=== PATIENT | female | born 1960 | race Caucasian/White ===

== ENCOUNTER 2016-09-25 19:35 | Inpatient (IN) | payer BC ==
[~2016-09-25] VITALS: Ht 154.9 cm; Wt 85.2 kg
[2016-09-25] MEDS ORDERED: SODIUM CHLOR 0.9% 1000 ML INJ 1,000 ML IV ONE ×2 (19:55→21:45)
[2016-09-25] MEDS ORDERED: METF850T PO (19:56)
[2016-09-25] MEDS ORDERED: ATOR10TA15 PO (19:56)
[2016-09-25] MEDS ORDERED: TRAM50TA PO (19:56)
[2016-09-25] MEDS ORDERED: PANT20TA2 PO (19:56)
[2016-09-25] MEDS ORDERED: LEVO50TA4 PO (19:56)
[2016-09-25] MEDS ORDERED: LISI10TA3 PO (19:56)
[2016-09-25] MEDS ORDERED: GABA800T PO (19:56)
[2016-09-25 19:57] VITALS: BP 136/71; PULSE 85; RESP 15; TEMP 97.6; O2SAT 99
[2016-09-25] MEDS ORDERED: SODIUM CHLORIDE 0.9% FLUSH 10 ML FLUSH IVF PRN (20:00)
[2016-09-25 20:01] VITALS: O2SAT 99
--- NOTE | 2016-09-25 20:17 | PD ---
HPI Chief Complaint: Diabetic Time Seen by Provider: 19:50 Travel History International Travel<30 days: No Contact w/Intl Traveler<30days: No Traveled to known affect area: No History of Present Illness HPI 56-year-old female with history of diabetes, sent in by urgent care facility for hypoglycemia. Patient initially went to the urgent care facility for evaluation of generalized weakness and malaise for the last 2-3 days. Patient is also felt nauseous and has had poor appetite and little to eat or drink. No vomiting. No diarrhea. No abdominal pain. No chest pain or dyspnea. No fevers or chills. Patient's blood glucose was 46 at the urgent care facility. She was given oral glucose and transferred to the emergency department. Here her blood sugar is above 100. She takes metformin only for her diabetes. PFSH Past Medical History Diabetes: Yes Patient Takes Glucophage: Yes Diminished Hearing: No GERD: Yes Hypertension: Yes Medical other: Yes (neuropathy) Tetanus Vaccination: > 5 Years Influenza Vaccination: Yes ?: Not Menopausal: Yes Para: 3 Past Surgical History Section: Yes Social History Alcohol Use: No Tobacco Use: No Substance Use: No Allergies-Medications (Allergen,Severity, Reaction): Coded Allergies: Codeine (Verified Allergy, Severe, Hives, 09/25/16) Reported Meds & Prescriptions Reported Meds & Active Scripts Active Reported Tramadol (Tramadol HCl) 50 Mg Tab 50 Mg PO Q4H PRN Gabapentin 800 Mg Tab 800 Mg PO TID Levothyroxine (Levothyroxine Sodium) 50 Mcg Tab 50 Mcg PO DAILY Atorvastatin (Atorvastatin Calcium) 10 Mg Tab 10 Mg PO HS Pantoprazole (Pantoprazole Sodium) 20 Mg Tab 20 Mg PO DAILY Lisinopril 10 Mg Tab 10 Mg PO DAILY Metformin (Metformin HCl) 850 Mg Tab 850 Mg PO BIDPC With meals Review of Systems Except as stated in HPI: all other systems reviewed are Neg Physical Exam Narrative GENERAL: Well-developed, well-nourished, comfortable, no acute distress. SKIN: Focused skin assessment warm/dry. No rash. No pallor. HEAD: Atraumatic. Normocephalic. EYES: Pupils equal and round. No scleral icterus. No injection or drainage. ENT: Mucous membranes pink and moist. NECK: Trachea midline. No JVD. CARDIOVASCULAR: Regular rate and rhythm. RESPIRATORY: No accessory muscle use. Clear to auscultation. Breath sounds equal bilaterally. GASTROINTESTINAL: Abdomen soft, non-tender, nondistended. MUSCULOSKELETAL: No obvious deformities. No clubbing. No cyanosis. No edema. NEUROLOGICAL: Awake and alert. No obvious cranial nerve deficits. Motor grossly within normal limits. Normal speech. PSYCHIATRIC: Appropriate mood and affect; insight and judgment normal. Data Data Last Documented VS Vital Signs Date Time Temp Pulse Resp B/P Pulse Ox O2 Delivery O2 Flow Rate FiO2 09/25/16 20:01 99 Room Air 09/25/16 19:57 97.6 85 15 136/71 Orders Electrocardiogram (09/25/16 19:55) Complete Blood Count With Diff (09/25/16 19:55) Comprehensive Metabolic Panel (09/25/16 19:55) Magnesium (Mg) (09/25/16 19:55) Phosphorus (Po4) (09/25/16 19:55) Beta Hydroxybutyrate (Acetone) (09/25/16 19:55) Urinalysis - C+S If Indicated (09/25/16 19:55) Ecg Monitoring (09/25/16 19:55) Iv Access Insert/Monitor (09/25/16 19:55) Oximetry (09/25/16 19:55) NPO (09/25/16 19:55) Sodium Chloride 0.9% Flush (Ns Flush) (09/25/16 20:00) Sodium Chlor 0.9% 1000 Ml Inj (Ns 1000 M (09/25/16 19:55) Ckmb (Isoenzyme) Profile (09/25/16 19:55) Troponin I (09/25/16 19:55) Ondansetron Inj (Zofran Inj) (09/25/16 20:45) Influenzae A/B Antigen (09/25/16 20:48) Chest, Single Ap (09/25/16 ) CKMB (09/25/16 20:13) CKMB% (09/25/16 20:13) Calcium Gluconate Inj (Calcium Gluconate (09/25/16 21:30) Dextrose 50% In Tiffanie (Vial) Inj (D50w (Vi (09/25/16 21:30) Insulin Human Regular Inj (Novolin R Inj (09/25/16 21:30) Sodium Bicarbonate 8.4% Inj (Sodium Bica (09/25/16 21:30) Sodium Polysty Sulfate Liq (Kayexalate L (09/25/16 21:30) Sodium Polysty Sulfate Liq (Kayexalate L (09/25/16 23:30) Urinary Catheter Insert/Apply (09/25/16 21:30) Sodium Chlor 0.45%... W/Sodium Bicarbona (09/25/16 21:30) Sodium Chlor 0.9% 1000 Ml Inj (Ns 1000 M (09/25/16 21:45) Labs Laboratory Tests Test 09/25/16 20:13 White Blood Count 15.5 TH/MM3 Red Blood Count 3.85 MIL/MM3 Hemoglobin 11.8 GM/DL Hematocrit 35.5 % Mean Corpuscular Volume 92.2 FL Mean Corpuscular Hemoglobin 30.6 PG Mean Corpuscular Hemoglobin 33.2 % Concent Red Cell Distribution Width 13.5 % Platelet Count 262 TH/MM3 Mean Platelet Volume 8.2 FL Neutrophils (%) (Auto) 83.9 % Lymphocytes (%) (Auto) 10.5 % Monocytes (%) (Auto) 4.1 % Eosinophils (%) (Auto) 0.1 % Basophils (%) (Auto) 1.4 % Neutrophils # (Auto) 13.1 TH/MM3 Lymphocytes # (Auto) 1.6 TH/MM3 Monocytes # (Auto) 0.6 TH/MM3 Eosinophils # (Auto) 0.0 TH/MM3 Basophils # (Auto) 0.2 TH/MM3 CBC Comment AUTO DIFF Differential Total Cells 100 Counted Neutrophils % (Manual) 77 % Band Neutrophils % 8 % Lymphocytes % 11 % Monocytes % 4 % Neutrophils # (Manual) 13.2 TH/MM3 Differential Comment FINAL DIFF MANUAL Platelet Estimate NORMAL Platelet Morphology Comment NORMAL Red Cell Morphology Comment NORMAL Sodium Level 137 MEQ/L Potassium Level 7.3 MEQ/L Chloride Level 107 MEQ/L Carbon Dioxide Level 12.4 MEQ/L Anion Gap 18 MEQ/L Blood Urea Nitrogen 71 MG/DL Creatinine 8.70 MG/DL Estimat Glomerular Filtration 5 ML/MIN Rate Random Glucose 139 MG/DL Calcium Level 8.7 MG/DL Phosphorus Level 5.5 MG/DL Magnesium Level 1.8 MG/DL Total Bilirubin 0.2 MG/DL Aspartate Amino Transf 17 U/L (AST/SGOT) Alanine Aminotransferase 14 U/L (ALT/SGPT) Alkaline Phosphatase 83 U/L Total Creatine Kinase 110 U/L Creatine Kinase MB 2.1 NG/ML Troponin I LESS THAN 0.02 NG/ML Total Protein 6.9 GM/DL Albumin 3.3 GM/DL B-Hydroxybutyrate 2.67 MMOL/L MDM Medical Decision Making Medical Screen Exam Complete: Yes Emergency Medical Condition: Yes Interpretation(s) EKG: Sinus, rate 91, normal axis, normal intervals, poor R-wave progression, generalized low QRS voltages, no prior comparison Differential Diagnosis Hypoglycemia, anemia, metabolic abnormality, UTI, ACS Narrative Course Vital signs show heart rate 85, blood pressure 136/71, pulse ox 99% on room air , oral temp of 97.6F. CBC shows WBC 15.5, hemoglobin 11.8, hematocrit 35.5, platelets 262, neutrophils 83.9%. Band neutrophils 8%. CMP is remarkable for potassium 7.3, bicarbonate 12.4, anion gap 18, BUN 71, creatinine 8.7, GFR 5, random glucose 139. The patient does not have any known history of renal insufficiency. She does have low QRS. His in all of her leads on EKG. No peaked T waves. She was given an amp of calcium gluconate followed by an amp of D50, 10 units of IV insulin, and an amp of sodium bicarbonate. Case discussed with on-call tele tech Dr. Salinas. He agrees with above medications. He would also like the patient to be given Kayexalate, 1 dose now , and the next dose in 2 hours from now. Acevedo catheter will also be placed. He'll like the patient to be admitted to the [facility] hospital in case she does not respond to resuscitation and needs dialysis. Acevedo placed by my nurse with no urine output. Case discussed with receiving room clerk Dr. Uriostegui. The patient will be admitted to his service to the ICU at the [facility]. Patient was made aware of all findings and plan for admission. Critical Care Narrative Aggregate critical care time was 40 minutes. Time to perform other separately billable procedures was not included in the critical care time. My time did not include minutes spent treating any other patients simultaneously or on activities that did not directly contribute to the patient's treatment. The services I provided to this patient were to treat and/or prevent clinically significant deterioration that could result in: , permanent disability, worsening clinical condition, dysrhythmia I provided critical care services requiring my management, as noted below: Chart data review, documentation time, medication orders and management, vital sign assessments/reviewing monitor data, ordering and reviewing lab tests, ordering and interpreting/reviewing x-rays and diagnostic studies, care of the patient and discussion of the patient with the admitting physicians. Diagnosis Primary Impression: Acute renal failure Qualified Code: N17.9 - Acute renal failure, unspecified acute renal failure type Additional Impressions: Hyperkalemia Hypoglycemia Admitting Information Admitting Physician Requests: Admit Felix Pickett MD Sep 25, 2016 20:17
[2016-09-25 20:20] LABS: AUTOMATED NEUTROPHIL # 13.1 TH/MM3 (1.8-7.7); BASOPHIL # 0.2 TH/MM3 (0-0.2); BASOPHIL % 1.4 % (0.0-2.0); EOSINOPHIL % 0.1 % (0.0-4.0); HEMATOCRIT 35.5 % (35.0-46.0); LYMPH % 10.5 % (9.0-44.0); LYMPHOCYTE # 1.6 TH/MM3 (1.0-4.8); MEAN CELL VOLUME 92.2 FL (80.0-100.0); MEAN CORPUSCULAR HEMOGLOBIN 30.6 PG (27.0-34.0); MEAN CORPUSCULAR HGB CONC 33.2 % (32.0-36.0); MONO % 4.1 % (0.0-8.0); NEUT % 83.9 % (16.0-70.0); PLATELET COUNT 262 TH/MM3 (150-450); RED BLOOD COUNT 3.85 MIL/MM3 (4.00-5.30); RED CELL DISTRIBUTION WIDTH 13.5 % (11.6-17.2); WHITE BLOOD COUNT 15.5 TH/MM3 (4.0-11.0)
[2016-09-25 20:23] LABS: HEMO FLAGS AUTO DIFF
[2016-09-25 20:39] LABS: BANDS 8 % (0-6); NEUTROPHIL # MANUAL DIFF 13.2 TH/MM3 (1.8-7.7); PLATELET ESTIMATE SMEAR NORMAL (NORMAL); PLATELET MORPHOLOGY NORMAL (NORMAL); POLYS (SEG NEUTROPHILS) 77 % (16-70); SCAN/DIFF FINAL DIFF MANUAL; WBC DIFF SAMPLE 100
[2016-09-25] MEDS ORDERED: ONDANSETRON HCL 4 MG/2 ML VIAL IV PUSH ONE (20:45)
[2016-09-25 21:13] LABS: ALKALINE PHOSPHATASE 83 U/L (45-117); ALT (GPT) 14 U/L (10-53); ANION GAP 18 MEQ/L (5-15); AST (GOT) 17 U/L (15-37); BETA-HYDROXYBUTYRATE 2.67 MMOL/L (0.00-0.39); BICARBONATE 12.4 MEQ/L (21.0-32.0); BLOOD UREA NITROGEN 71 MG/DL (7-18); CHLORIDE 107 MEQ/L (98-107); CREATINE KINASE 110 U/L (26-192); GLOMERULAR FILTRATION RATE 5 ML/MIN (>89); MAGNESIUM 1.8 MG/DL (1.5-2.5); SODIUM (NA) 137 MEQ/L (136-145); TOTAL BILIRUBIN ADULT 0.2 MG/DL (0.2-1.0)
[2016-09-25 21:15] LABS: POTASSIUM 7.3 MEQ/L (3.5-5.1)
--- NOTE | 2016-09-25 21:28 | RADHPO ---
EXAM DATE/TIME: 09/25/2016 21:01 [facility] COMPARISON: No previous studies available for comparison. INDICATIONS : General weakness. MEDICAL HISTORY : Hypertension. Diabetes mellitus type II. SURGICAL HISTORY : None. ENCOUNTER: Initial ACUITY: 3 days PAIN SCORE: 0/10 LOCATION: Bilateral chest FINDINGS: The lungs are clear without infiltrate, nodule, or mass. There is no appreciable pleural effusion fo r technique. Heart and mediastinum are unremarkable. CONCLUSION: No acute cardiopulmonary disease. Stefano Lazaro MD on September 25, 2016 at 21:26 Board Certified Radiologist. This report was verified electronically.
[2016-09-25 21:30] LABS: CKMB 2.1 NG/ML (0.5-3.6)
[2016-09-25] MEDS ORDERED: CALCIUM GLUCONATE 10% 1 GM/10 ML VIAL IV PUSH ONE (21:30)
[2016-09-25] MEDS ORDERED: DEXTROSE 50% IN WATER 50 ML VIAL(D50) IV PUSH ONE (21:30)
[2016-09-25] MEDS ORDERED: INSULIN HUMAN REGULAR 1,000 UNITS/10 ML VIAL IV PUSH ONE (21:30)
[2016-09-25] MEDS ORDERED: SODIUM BICARBONATE 8.4% INJ 100 MEQ in SODIUM CHLOR 0.45% 1000 ML INJ 1,000 ML IV SCH (21:30)
[2016-09-25] MEDS ORDERED: SODIUM POLYSTYRENE SULFONATE SUSP 15 GM/60 ML CUP PO ONE (21:30)
[2016-09-25] MEDS ORDERED: SODIUM BICARBONATE 8.4% INJ 50 MEQ/50 ML SYR IV PUSH ONE (21:30)
[2016-09-25 22:52] VITALS: BP 121/58; PULSE 91; RESP 16; O2SAT 99
[2016-09-25] MEDS ORDERED: SODIUM POLYSTYRENE SULFONATE SUSP 15 GM/60 ML CUP PO SCH (23:30)
[2016-09-26] VITALS (20 sets, daily range): BP systolic 110–139; BP diastolic 57–75; PULSE 84–94; RESP 11–17; TEMP 97.8–99; O2SAT 98–100
[2016-09-26 02:23] LABS: BACTERIA, URINE OCC /hpf; BLOOD, URINE SMALL (NEG); COMMENT (UR) CULT NOT INDICATED; CULTURE IF INDICATED CULT NOT INDICATED; GLUCOSE,URINE TRACE mg/dL (NEG); KETONE, URINE 10 mg/dL (NEG); MUCUS URINE FEW /lpf (OCC); NITRITE,URINE NEG (NEG); SQUAMOUS EPITHELIAL CELL URINE <1 /hpf (0-5); URINE COLOR LIGHT-YELLOW (YELLW/STRAW)
--- NOTE | 2016-09-26 02:52 | HHI.HP ---
[facility] Service Critical Care Medicine Primary Care Physician Gregorio Riley MD Admission Diagnosis acute renal failure, hyperkalemia, hypoglycemia Diagnosis: Travel History International Travel<30 Days: No Contact w/Intl Traveler <30 Da: No Traveled to Known Affected Are: No History of Present Illness 56-year-old female with history of hypertension, diabetes, sent in by urgent care facility for hypoglycemia. Patient initially went to the urgent care facility for evaluation of generalized weakness and malaise for the last 2-3 days. Patient is also felt nauseous and has had poor appetite and little to eat or drink. No vomiting. No diarrhea. No abdominal pain. No chest pain or dyspnea. No fevers or chills. Patient's blood glucose was 46 at the urgent care facility. She was given oral glucose and transferred to the emergency department. However she was found to be in acute renal failure with creatinine 9 and potassium 7. She was initially seen at the [facility] however per nephrology party plan sales consultant request she was transferred to [facility] and admitted to ICU. Review of Systems Constitutional: COMPLAINS OF: Fatigue, Change in appetite, DENIES: Diaphoretic episodes, Fever, Weight gain, Weight loss, Chills, Dizziness, Night Sweats Endocrine: DENIES: Abnorml menstrual pattern, Heat/cold intolerance, Polydipsia , Polyuria, Polyphagia Eyes: DENIES: Blurred vision, Diplopia, Eye inflammation, Eye pain, Vision loss , Photosensitivity, Double Vision Ears, nose, mouth, throat: DENIES: Tinnitus, Hearing loss, Vertigo, Nasal discharge, Oral lesions, Throat pain, Hoarseness, Ear Pain, Running Nose, Epistaxis, Sinus Pain, Toothache, Odynophagia Respiratory: DENIES: Apneas, Cough, Snoring, Wheezing, Hemoptysis, Sputum production, Shortness of breath Cardiovascular: DENIES: Chest pain, Palpitations, Syncope, Dyspnea on Exertion , PND, Lower Extremity Edema, Orthopnea, Claudication Gastrointestinal: COMPLAINS OF: Nausea, Anorexia, DENIES: Abdominal pain, Black stools, Bloody stools, Constipation, Diarrhea, Vomiting, Difficulty Swallowing Genitourinary: DENIES: Abnormal vaginal bleeding, Dysmenorrhea, Dyspareunia, Sexual dysfunction, Urinary frequency, Urinary incontinence, Urgency, Hematuria , Dysuria, Nocturia, Vaginal discharge Musculoskeletal: DENIES: Joint pain, Muscle aches, Stiffness, Joint Swelling, Back pain, Neck pain Integumentary: DENIES: Abnormal pigmentation, Pruritus, Rash, Nail changes, Breast masses, Breast skin changes, Nipple discharge Hematologic/lymphatic: DENIES: Bruising, Lymphadenopathy Immunologic/allergic: DENIES: Eczema, Urticaria Neurologic: DENIES: Abnormal gait, Headache, Localized weakness, Paresthesias, Seizures, Speech Problems, Tremor, Poor Balance Psychiatric: DENIES: Anxiety, Confusion, Mood changes, Depression, Hallucinations, Agitation, Suicidal Ideation, Homicidal Ideation, Delusions Past Family Social History Allergies: Coded Allergies: Codeine (Verified Allergy, Severe, Hives, 09/25/16) Past Medical History Diabetes mellitus type 2 Hypertension Diabetic neuropathy Hypothyroid Past Surgical History Negative Reported Medications Reported Meds & Active Scripts Active Reported Tramadol (Tramadol HCl) 50 Mg Tab 50 Mg PO Q4H PRN Gabapentin 800 Mg Tab 800 Mg PO TID Levothyroxine (Levothyroxine Sodium) 50 Mcg Tab 50 Mcg PO DAILY Atorvastatin (Atorvastatin Calcium) 10 Mg Tab 10 Mg PO HS Pantoprazole (Pantoprazole Sodium) 20 Mg Tab 20 Mg PO DAILY Lisinopril 10 Mg Tab 10 Mg PO DAILY Metformin (Metformin HCl) 850 Mg Tab 850 Mg PO BIDPC With meals Active Ordered Medications Current Medications Medications (Trade) Dose Ordered Sig/Suzette Route PRN Reason Start Time Stop Time Status Last Admin Dose Admin Sodium Polystyrene Sulfonate 15 gm 15 gm ONCE PO 09/25/16 23:30 09/25/16 23:38 Sodium Bicarbonate/ Sodium Chloride (Sodium Bicarbonate 8.4% Inj/1/2 NS 1000 ml Inj) 1,100 ml @ 125 mls/hr Q8H48M IV 09/25/16 21:30 09/25/16 22:04 Sodium Chloride (NS Flush) 2 ml UNSCH PRN .XX FLUSH AFTER USING IV ACCESS 09/26/16 03:00 Sodium Chloride (NS Flush) 2 ml BID .XX 09/26/16 09:00 Acetaminophen (Tylenol) 650 mg Q6H PRN PO PAIN 1-5 AND/OR FEVER >101F 09/26/16 03:00 Morphine Sulfate (Morphine Inj) 2 mg Q2H PRN IV PAIN SCALE 6 TO 10 09/26/16 03:00 Ondansetron HCl (Zofran Inj) 4 mg Q6H PRN IV NAUSEA OR VOMITING 09/26/16 03:00 Metoclopramide HCl (Reglan Inj) 5 mg Q6H PRN IV NAUSEA OR VOMITING 09/26/16 03:00 Temazepam (Restoril) 15 mg HS PRN PO INSOMNIA 09/26/16 03:00 Heparin Sodium (Porcine) (Heparin Inj) 5,000 units Q12H SQ 09/26/16 03:00 Miscellaneous Information 1 Q361D XX 09/26/16 03:00 Chlorhexidine Gluconate (Chlorhexidine 2% Cloth) 3 pack Taper DAILY@04 TOP 09/26/16 04:00 09/22/17 03:59 Chlorhexidine Gluconate (Chlorhexidine 2% Cloth) 3 pack UNSCH PRN TOP HYGIENIC CARE 09/26/16 03:00 Atorvastatin Calcium (Lipitor) 10 mg HS PO 09/26/16 21:00 Levothyroxine Sodium (Synthroid) 50 mcg DAILY@0600 PO 09/26/16 06:00 Family History Noncontributory Social History Negative 3 Physical Exam Vital Signs Vital Signs Date Time Temp Pulse Resp B/P Pulse Ox O2 Delivery O2 Flow Rate FiO2 09/26/16 02:00 86 09/26/16 00:52 92 09/26/16 00:10 97.8 88 16 139/74 100 09/25/16 22:52 91 16 121/58 99 Room Air 09/25/16 20:01 99 Room Air 09/25/16 20:01 99 Room Air 09/25/16 19:57 97.6 85 15 136/71 99 Physical Exam GENERAL: Well-nourished, well-developed patient. SKIN: Warm and dry. HEAD: Normocephalic. EYES: No scleral icterus. No injection or drainage. NECK: Supple, trachea midline. No JVD or lymphadenopathy. CARDIOVASCULAR: Regular rate and rhythm without murmurs, gallops, or rubs. RESPIRATORY: Breath sounds equal bilaterally. No accessory muscle use. GASTROINTESTINAL: Abdomen soft, non-tender, nondistended. MUSCULOSKELETAL: No cyanosis, or edema. BACK: Nontender without obvious deformity. No CVA tenderness. EXTREMITIES: No clubbing cyanosis or edema Laboratory Laboratory Tests Test 09/25/16 09/26/16 20:13 01:40 White Blood Count 15.5 Red Blood Count 3.85 Hemoglobin 11.8 Hematocrit 35.5 Mean Corpuscular Volume 92.2 Mean Corpuscular Hemoglobin 30.6 Mean Corpuscular Hemoglobin 33.2 Concent Red Cell Distribution Width 13.5 Platelet Count 262 Mean Platelet Volume 8.2 Neutrophils (%) (Auto) 83.9 Lymphocytes (%) (Auto) 10.5 Monocytes (%) (Auto) 4.1 Eosinophils (%) (Auto) 0.1 Basophils (%) (Auto) 1.4 Neutrophils # (Auto) 13.1 Lymphocytes # (Auto) 1.6 Monocytes # (Auto) 0.6 Eosinophils # (Auto) 0.0 Basophils # (Auto) 0.2 CBC Comment AUTO DIFF Differential Total Cells 100 Counted Neutrophils % (Manual) 77 Band Neutrophils % 8 Lymphocytes % 11 Monocytes % 4 Neutrophils # (Manual) 13.2 Differential Comment FINAL DIFF MANUAL Platelet Estimate NORMAL Platelet Morphology Comment NORMAL Red Cell Morphology Comment NORMAL Sodium Level 137 Potassium Level 7.3 Chloride Level 107 Carbon Dioxide Level 12.4 Anion Gap 18 Blood Urea Nitrogen 71 Creatinine 8.70 Estimat Glomerular Filtration 5 Rate Random Glucose 139 Calcium Level 8.7 Phosphorus Level 5.5 Magnesium Level 1.8 Total Bilirubin 0.2 Aspartate Amino Transf 17 (AST/SGOT) Alanine Aminotransferase 14 (ALT/SGPT) Alkaline Phosphatase 83 Total Creatine Kinase 110 Creatine Kinase MB 2.1 Troponin I LESS THAN 0.02 Total Protein 6.9 Albumin 3.3 B-Hydroxybutyrate 2.67 Urine Color LIGHT-YELLOW Urine Turbidity HAZY Urine pH 5.0 Urine Specific [place] 1.009 Urine Protein 30 Urine Glucose (UA) TRACE Urine Ketones 10 Urine Occult Blood SMALL Urine Nitrite NEG Urine Bilirubin NEG Urine Urobilinogen LESS THAN 2.0 Urine Leukocyte Esterase NEG Urine RBC LESS THAN 1 Urine WBC 3 Urine Squamous Epithelial <1 Cells Urine Bacteria OCC Urine Mucus FEW Microscopic Urinalysis Comment CULT NOT INDICATED Date/Time Procedure Status Source Growth 09/25/16 20:57 Influenza Types A,B Antigen (CARLOS) - Final Complete Nasal Washing NEGATIVE FOR FLU A AND B ANTIGEN.... Result Diagram: 09/25/16201209/25/162012 Assessment and Plan Assessment and Plan Acute kidney injury - Dehydration - Ultrasound imaging to rule out obstruction - Sodium bicarbonate drip per hand model - Strict urine output - Monitor electrolytes and creatinine - CPK normal - Nephrology consult - Hold all nephrotoxic medications Hyperkalemia - Treated with calcium insulin and sodium bicarbonate in the ED - Management per hand model - No EKG changes - Hold lisinopril Hypertension - DC lisinopril due to hyperkalemia and acute kidney injury - Hydralazine when necessary Diabetic neuropathy - Hold gabapentin while in the ICU Diabetes mellitus - DC metformin - Monitor for lactic acidosis - Medium intensity sliding scale DVT GI prophylaxis - Teds SCDs - Heparin and Pepcid Critical Care: The total critical care time was 35 minutes. Time to perform other separately billable procedures was not included in the critical care time. Antoni Uriostegui MD Sep 26, 2016 02:52
[2016-09-26] MEDS ORDERED: MISCELLANEOUS NURSING INFORMATION XX SCH (03:00)
[2016-09-26] MEDS ORDERED: METOCLOPRAMIDE HCL 10 MG/2 ML VIAL IV PRN (03:00)
[2016-09-26] MEDS ORDERED: ACETAMINOPHEN 325 MG TAB PO PRN (03:00)
[2016-09-26] MEDS ORDERED: CHLORHEXIDINE GLUCONATE 2 % 1 PACK (2 CLOTHS) TOP PRN (03:00)
[2016-09-26] MEDS ORDERED: SODIUM CHLORIDE 0.9% FLUSH 10 ML FLUSH PRN (03:00)
[2016-09-26] MEDS ORDERED: TEMAZEPAM 15 MG CAP PO PRN (03:00)
[2016-09-26] MEDS ORDERED: MORPHINE SULFATE 4 MG/ML INJ IV PRN (03:00)
[2016-09-26] MEDS ORDERED: ONDANSETRON HCL 4 MG/2 ML VIAL IV PRN (03:00)
[2016-09-26] MEDS ORDERED: RESP: ALBUTEROL 2.5 MG/IPRATROPIUM 0.5 MG NEB (PRN) INH (03:00)
[2016-09-26 03:20] LABS: BLOOD GAS BASE EXCESS -13.2 mmol/L (-2-2); BLOOD GAS CARBOXYHEMOGLOBIN 1.1 % (0-4); BLOOD GAS HCO3 13 mmol/L (22-26); BLOOD GAS METHEMOGLOBIN 0.9 % (0-2); BLOOD GAS O2 HGB SATURATION 95 % (90-100); BLOOD GAS OXYGEN CONTENT 14.2 Vol % (12.0-20.0); BLOOD GAS PCO2 32 mmHg (38-42); BLOOD GAS PO2 91 mmHg (61-120); BLOOD GAS TOTAL HGB 10.6 G/DL (12.0-16.0); TEMP CORR TO 98.6
[2016-09-26 03:21] LABS: CRITICAL VALUE YES; DRAW SITE RT RADIAL; FIO2 21 %; NUMBER OF ARTERIAL PUNCTURES 1; OXYGEN DEVICE RA; STAT NO; ULNAR PULSE PRESENT
[2016-09-26] MEDS: CHLORHEXIDINE GLUCONATE 2 % 1 PACK (2 CLOTHS) TOP SCH (04:00)
[2016-09-26 04:27] LABS: BICARBONATE 15.4 MEQ/L (21.0-32.0); POTASSIUM 7.3 MEQ/L (3.5-5.1)
[2016-09-26 04:49] LABS: CKMB 3.6 NG/ML (0.5-3.6)
[2016-09-26] MEDS: HEPARIN SODIUM - SQ 10,000 UNITS/ML VIAL SQ SCH ×2 (05:03→15:00)
[2016-09-26] MEDS: LEVOTHYROXINE SODIUM 50 MCG TAB PO SCH (05:03)
[2016-09-26] MEDS ORDERED: GLUCAGON 1 MG/ML VIAL OTHER PRN (05:45)
[2016-09-26] MEDS: DEXTROSE 50% IN WATER 50 ML VIAL(D50) IV PUSH PRN ×2 (06:19→06:37)
[2016-09-26] MEDS: INSULIN ASPART SUPPLEMENTAL SCALE SQ SCH ×4 (06:44→20:25)
[2016-09-26] MEDS: SODIUM BICARBONATE 8.4% INJ 150 MEQ in DEXTROSE 5% IN WATE 1000ML INJ 1,000 ML IV SCH ×6 (07:00→22:50)
[2016-09-26] MEDS ORDERED: SODIUM POLYSTYRENE SULFONATE SUSP 15 GM/60 ML CUP PO ONE (07:30)
[2016-09-26] MEDS ORDERED: SODIUM POLYSTYRENE SULFONATE SUSP 15 GM/60 ML CUP PO SCH (08:00)
[2016-09-26] MEDS: SODIUM CHLORIDE 0.9% FLUSH 10 ML FLUSH SCH ×2 (09:00→20:24)
[2016-09-26] MEDS: SODIUM POLYSTYRENE SULFONATE SUSP 15 GM/60 ML CUP PO SCH ×3 (09:00→13:00)
[2016-09-26] MEDS ORDERED: DEXTROSE 50% IN WATER 50 ML SYRINGE ONE (09:30)
--- NOTE | 2016-09-26 11:32 | RADRPT ---
EXAM DATE/TIME: 09/26/2016 09:23 [facility] COMPARISON: No previous studies available for comparison. INDICATIONS : Increased BUN/creatinine. MEDICAL HISTORY : Hypertension. Gastroesophageal reflux disease. Thyroid disease. Renal failure. Diabetes. Osteopenia . Neuropathy. SURGICAL HISTORY : Eye prosthesis. ENCOUNTER: Initial ACUITY: 1 day PAIN SCORE: 0/10 LOCATION: Bilateral flank MEASUREMENTS: RIGHT KIDNEY: 11.2 x 4.8 x 5.0 cm LEFT KIDNEY: 11.2 x 4.8 x 5.0 cm FINDINGS: RIGHT KIDNEY: Renal cortex is normal in thickness and echotexture. No hydronephrosis, stone, or mass. LEFT KIDNEY: Renal cortex is normal in thickness and echotexture. No hydronephrosis, stone, or mass. BLADDER: Acevedo is in place. Within normal limits given the degree of distension. CONCLUSION: Normal examination. Martínez Villarreal MD on September 26, 2016 at 11:29 Board Certified Radiologist. This report was verified electronically.
[2016-09-26 13:45] LABS: ALKALINE PHOSPHATASE 84 U/L (45-117); ALT (GPT) 14 U/L (10-53); ANION GAP 16 MEQ/L (5-15); AST (GOT) 15 U/L (15-37); BICARBONATE 20.5 MEQ/L (21.0-32.0); BLOOD UREA NITROGEN 64 MG/DL (7-18); CHLORIDE 104 MEQ/L (98-107); GLOMERULAR FILTRATION RATE 5 ML/MIN (>89); POTASSIUM 5.1 MEQ/L (3.5-5.1); SODIUM (NA) 140 MEQ/L (136-145); TOTAL BILIRUBIN ADULT 0.3 MG/DL (0.2-1.0)
--- NOTE | 2016-09-26 18:41 | EKG ---
Date Performed: 09/25/2016 Time Performed: 20:03:12 PTAGE: 56 years EKG: Sinus rhythm Poor R wave progression - probable normal variant Generalized low QRS voltages Borderline ECG NO PREVIOUS TRACING DOCTOR: Grady Lester Interpretating Date/Time 09/26/2016 18:39:49
[2016-09-26] MEDS: ATORVASTATIN 10 MG TAB PO SCH (20:19)
--- NOTE | 2016-09-26 20:39 | MB ---
cc: EDMUND QUINTEROS MD DATE OF CONSULTATION 09/26/16 REASON FOR CONSULTATION Elevated BUN and creatinine. HISTORY OF PRESENT ILLNESS This is a 56-year-old female with past medical history of diabetes mellitus diagnosed three years ago, history of hypertension, history of diabetic neuropathy, hypothyroidism who came to the hospital with generalized weakness and dizziness. I was called to see the patient because of elevated BUN and creatinine and hyperkalemia. The patient has no baseline labs from before. She came with creatinine of 8.7 with a BUN of 71 and potassium of 7.3. The patient was told by her primary physician in March that she has some kidney disease, but she has never seen a drug and alcohol counselor. She moved from [place] in November of last year and she was seen by her primary physician in March last year. She denies any dysuria or hematuria. There is no history of renal stone. She has this nausea and vomiting and loose bowel motion off and on going on for the last few days. There is no history of fever. Denies taking any nonsteroidal anti-inflammatory drugs. She was feeling weak and tired and has dizziness and eventually came to the hospital. PAST MEDICAL HISTORY 1. Hypertension, 2. Diabetes mellitus, 3. Hypothyroidism, 4. Diabetic neuropathy. PAST SURGICAL HISTORY None. REVIEW OF SYSTEMS The patient has generalized weakness, feeling tired. She is much better now. The nausea is improving. Her appetite is improving. She has this nausea, vomiting and loose bowel motion going on for two or three days. No shortness of breath. No chest pain. No palpitation. She has no history of diabetic retinopathy. Clinically, she has pain in both feet consistent with possible neuropathy. Denies taking any nonsteroidal anti-inflammatory drugs. SOCIAL HISTORY She is . There is no history of smoking or alcoholism FAMILY HISTORY Noncontributory. ALLERGIES CODEINE MEDICATIONS Currently 1. Normal saline with. 2. Sodium bicarbonate. 3. Levothyroxine 50 mcg once a day. 4. Lipitor 10 mg q.h.s. 5. Heparin 5000 subcu q. 12-hour. 6. Insulin aspart sliding scale. 7. Reglan. 8. Morphine as needed PHYSICAL EXAMINATION GENERAL: The patient is awake, alert. She is not in acute distress. VITAL SIGNS: The last blood pressure is 110/62, temperature 98, oxygen saturation is 98-99%. HEENT: Pupils equally reacting to light. Nonicteric sclerae. Conjunctivae normal. NECK: Supple. JVD is not elevated. LUNGS: The patient has bilateral good air entry with occasional wheezing. HEART: S1, S2, regular rhythm, distended, nontender. Bowel sounds positive. EXTREMITIES: There is mild edema in the legs. LABORATORY DATA WBC count is 15.5, hemoglobin 11.8, platelet count of 262, neutrophils 83.9%. Sodium 140. potassium 5.1, chloride 104, bicarb 20.5, BUN 64, creatinine 8.59, total creatinine kinase is 210. Troponin I 0.02, total protein is 6.7. Albumin of 3.4, AST, ALT normal, alkaline phosphatase normal. Urinalysis showing protein of 30. Toxicology screen - beta hydroxybutyrate was 2.67. IMAGING STUDIES The patient had ultrasound of the kidneys done which showed both kidneys are normal in size. There is no hydronephrosis. Chest x-ray was done which shows that there are no infiltrates. ASSESSMENT/PLAN 1. Possible chronic kidney disease with some acute worsening. 2. Hyperkalemia and metabolic acidosis 3. Hypertension 4. Diabetes mellitus 5. Hypothyroidism. The patient has a very high BUN and creatinine and we do not know her baseline labs. She has some proteinuria. There is possibility of diabetic renal disease. Her kidneys are normal in size. At present, the potassium is better. She is nonoliguric. Continue the IV fluid with bicarb. Her bicarb is still low. Follow the urine output and the BUN and creatinine. I will try to get her previous labs from her primary physician on Thursday to see her baseline creatinine. I did discuss with the patient briefly in case if things do not improve she possibly will need dialysis, but I will discuss with her in detail in case it comes to that. Thank you for the consultation and I will follow the patient while she is in the hospital. MD EMILY Roberts/ /7:11 PM /8:24 PM
[2016-09-27] VITALS (11 sets, daily range): BP systolic 110–140; BP diastolic 61–76; PULSE 78–94; RESP 14–24; TEMP 97.5–99.2; O2SAT 95–98
[2016-09-27] MEDS: CHLORHEXIDINE GLUCONATE 2 % 1 PACK (2 CLOTHS) TOP SCH (03:55)
[2016-09-27] MEDS: HEPARIN SODIUM - SQ 10,000 UNITS/ML VIAL SQ SCH ×2 (03:55→14:02)
[2016-09-27 05:23] LABS: ALKALINE PHOSPHATASE 70 U/L (45-117); ALT (GPT) 12 U/L (10-53); ANION GAP 12 MEQ/L (5-15); AST (GOT) 45 U/L (15-37); BICARBONATE 25.9 MEQ/L (21.0-32.0); BLOOD UREA NITROGEN 64 MG/DL (7-18); CHLORIDE 99 MEQ/L (98-107); GLOMERULAR FILTRATION RATE 5 ML/MIN (>89); MAGNESIUM 1.4 MG/DL (1.5-2.5); SODIUM (NA) 137 MEQ/L (136-145); TOTAL BILIRUBIN ADULT 0.4 MG/DL (0.2-1.0)
[2016-09-27 05:25] LABS: POTASSIUM 5.2 MEQ/L (3.5-5.1)
[2016-09-27] MEDS: SODIUM BICARBONATE 8.4% INJ 150 MEQ in DEXTROSE 5% IN WATE 1000ML INJ 1,000 ML IV SCH ×6 (05:25→21:20)
[2016-09-27] MEDS: LEVOTHYROXINE SODIUM 50 MCG TAB PO SCH (05:26)
[2016-09-27] MEDS: INSULIN ASPART SUPPLEMENTAL SCALE SQ SCH ×4 (06:29→21:00)
[2016-09-27 07:04] LABS: AUTOMATED NEUTROPHIL # 4.4 TH/MM3 (1.8-7.7); BASOPHIL % 0.2 % (0.0-2.0); EOSINOPHIL # 0.2 TH/MM3 (0-0.4); EOSINOPHIL % 2.6 % (0.0-4.0); HEMATOCRIT 29.5 % (35.0-46.0); HEMO FLAGS DIFF FINAL; LYMPH % 19.5 % (9.0-44.0); LYMPHOCYTE # 1.2 TH/MM3 (1.0-4.8); MEAN CELL VOLUME 89.5 FL (80.0-100.0); MEAN CORPUSCULAR HEMOGLOBIN 29.9 PG (27.0-34.0); MEAN CORPUSCULAR HGB CONC 33.4 % (32.0-36.0); MONO % 8.7 % (0.0-8.0); PLATELET COUNT 170 TH/MM3 (150-450); RED CELL DISTRIBUTION WIDTH 14.2 % (11.6-17.2); WHITE BLOOD COUNT 6.3 TH/MM3 (4.0-11.0)
[2016-09-27] MEDS: SODIUM CHLORIDE 0.9% FLUSH 10 ML FLUSH SCH ×2 (08:46→21:00)
--- NOTE | 2016-09-27 11:05 | HHI.CCPN ---
Subjective Remarks/Hospital Course 09/26: 56-year-old female with history of hypertension, diabetes, sent in by urgent care facility for hypoglycemia. Patient initially went to the urgent care facility for evaluation of generalized weakness and malaise for the last 2- 3 days. Patient is also felt nauseous and has had poor appetite and little to eat or drink. No vomiting. No diarrhea. No abdominal pain. No chest pain or dyspnea. No fevers or chills. Patient's blood glucose was 46 at the urgent care facility. She was given oral glucose and transferred to the emergency department. However she was found to be in acute renal failure with creatinine 9 and potassium 7. She was initially seen at the [place] ER however per nephrology senior compensation consultant request she was transferred to [facility] and admitted to ICU. 09/27: Resting in bed comfortably. Potassium 5.2 this morning. Has not had any bowel movements since yesterday despite Kayexalate. She is making urine currently. Has been evaluated by Dr. Claudio. Metabolic acidosis seems to be responding with bicarbonate drip. BUN creatinine remains elevated and patient may require dialysis eventually. Objective Vital Signs Date Time Temp Pulse Resp B/P Pulse Ox O2 Delivery O2 Flow Rate FiO2 09/27/16 08:00 90 09/27/16 08:00 97.8 14 110/61 97 09/26/16 07:00 Room Air Intake and Output 09/26/16 09/26/16 09/27/16 08:00 16:00 00:00 Intake Total 1212 ml 500 ml 1587 ml Output Total 705 ml 760 ml 680 ml Balance 507 ml -260 ml 907 ml Result Diagram: 09/27/16 0636 09/27/16 0353 Other Results Microbiology Date/Time Procedure Status Source Growth 09/25/16 20:57 Influenza Types A,B Antigen (CARLOS) - Final Complete Nasal Washing NEGATIVE FOR FLU A AND B ANTIGEN.... Imaging Last Impressions Renal Ultrasound 09/26/16 0000 Signed Impressions: Service Date/Time: Monday, September 26, 2016 09:23 - CONCLUSION: Normal examination. Martínez Villarreal MD Chest X-Ray 09/25/16 0000 Signed Impressions: Service Date/Time: September 21:01 - CONCLUSION: No acute cardiopulmonary disease. Stefano Lazaro MD Objective Remarks GENERAL: Well-nourished, well-developed patient. SKIN: Warm and dry. HEAD: Normocephalic. EYES: No scleral icterus. No injection or drainage. NECK: Supple, trachea midline. No JVD or lymphadenopathy. CARDIOVASCULAR: Regular rate and rhythm without murmurs, gallops, or rubs. RESPIRATORY: Breath sounds equal bilaterally. No accessory muscle use. GASTROINTESTINAL: Abdomen soft, non-tender, nondistended. MUSCULOSKELETAL: No cyanosis, or edema. BACK: Nontender without obvious deformity. No CVA tenderness. EXTREMITIES: No clubbing cyanosis or edema A/P Assessment and Plan Acute kidney injury - Dehydration - Ultrasound imaging to rule out obstruction -Continue bicarbonate drip - Strict urine output - Monitor electrolytes and creatinine - CPK normal - Nephrology consult noted. - Hold all nephrotoxic medications Hyperkalemia - Treated with calcium insulin and sodium bicarbonate in the ED - Management per commissary production supervisor - No EKG changes - Hold lisinopril - Given Kayexalate on 09/27, will repeat 4 doses on 09/28 for hyperkalemia. Hypertension - Off lisinopril due to hyperkalemia and acute kidney injury - Hydralazine when necessary Diabetic neuropathy - Hold gabapentin while in the ICU Diabetes mellitus - Off metformin - Monitor for lactic acidosis - Medium intensity sliding scale DVT GI prophylaxis - Teds SCDs - Heparin and Pepcid Patient will be transferred to hospitalist service for further medical management. Critical care will be signing off. Please reconsult if needed. Gil Louise MD Sep 27, 2016 11:05
[2016-09-27] MEDS: SODIUM POLYSTYRENE SULFONATE SUSP 15 GM/60 ML CUP PO/NG SCH ×5 (12:00→20:00)
--- NOTE | 2016-09-27 15:23 | HHI.NPPN ---
Subjective History of Present Illness 56-year-old female with past medical history of diabetes mellitus diagnosed three years ago, history of hypertension, history of diabetic neuropathy, hypothyroidism who came to the hospital with generalized weakness and dizziness. I was called to see the patient because of elevated BUN and creatinine and hyperkalemia. The patient has no baseline labs from before. She came with creatinine of 8.7 with a BUN of 71 and potassium of 7.3. Additional Remarks Patient is alert, no SOB, no nausea, feeling better. Review of Systems General Constitutional: Fatigue Cardiovascular Cardiac: DORSEY Objective Data Data 09/26/16 09/27/16 19:00 07:00 Intake Total 500 ml 3266 ml Output Total 1190 ml 1850 ml Balance -690 ml 1416 ml Intake Oral 500 ml 1200 ml IV Total 2066 ml Output Urine Total 1190 ml 1850 ml # Bowel Movements 1 Vital Signs Date Time Temp Pulse Resp B/P Pulse Ox O2 Delivery O2 Flow Rate FiO2 09/27/16 12:00 98.2 88 17 110/69 98 09/27/16 12:00 88 09/27/16 10:00 78 09/27/16 08:00 90 09/27/16 08:00 97.8 90 14 110/61 97 09/27/16 06:00 81 09/27/16 04:00 98.6 91 24 129/61 95 09/27/16 04:00 92 09/27/16 02:00 92 09/27/16 00:00 91 09/27/16 00:00 99.2 92 15 140/67 98 09/26/16 22:00 91 09/26/16 20:00 99.0 92 15 129/75 98 09/26/16 20:00 92 09/26/16 18:01 92 09/26/16 17:44 91 09/26/16 16:00 98.0 93 16 110/62 99 -: 09/27/16 0636 09/27/16 0353 Physical Exam General Appearance: Well Nourished, No Acute Distress, Comfortable Eyes Eye Exam: Pupils Equal Throat Throat Exam: Oral Mucosa [place] & Moist Neck Neck Exam: Neck Supple Pulmonary Resp Exam: Breath Sounds Equal, No Distress, Rhonchi, Decreased Bases Cardiology CV Exam: Regular, Normal Sinus Rhythm Gastrointestinal/Abdomen GI Exam: Soft, Non-Tender, Bowel Sounds Present Extremeties Extremities Exam: Trace Edema Neurologic Neuro Exam: Alert, Awake, Oriented Psychiatric Psych Exam: Appropriate Responses Assessment/Plan Assessment Summary: Hypertension, CKD Stage IV Electrolyte Assessment: Hyperkalemia, Metabolic Acidosis Problem List: (1) Hyperkalemia (2) Hypoglycemia (3) Acute renal failure (4) Metabolic acidosis (5) Stage 4 chronic kidney disease Plan Patient has slight improvement in the Creatinine. K is better. Possibly also has an element of MATHEW. Will try to get her previous BMP from PCP on Thursday. Kidneys look normal. Possibly has underlying CKD and develop MATHEW. D/W the patient for possible kidney Biopsy for prognosis and diagnosis both. No urgent need for Dialysis, continue IVF. Problem Qualifiers (1) Acute renal failure: Qualified Code: N17.9 - Acute renal failure, unspecified acute renal failure type Acosta Salinas MD Sep 27, 2016 15:23
[2016-09-27 19:54] LABS: BICARBONATE 33.3 MEQ/L (21.0-32.0); POTASSIUM 3.1 MEQ/L (3.5-5.1)
[2016-09-27] MEDS: ATORVASTATIN 10 MG TAB PO SCH (21:43)
[2016-09-28] VITALS (7 sets, daily range): BP systolic 113–160; BP diastolic 72–92; PULSE 78–89; RESP 18–26; TEMP 97.4–99.1; O2SAT 95–97
[2016-09-28] MEDS: CHLORHEXIDINE GLUCONATE 2 % 1 PACK (2 CLOTHS) TOP SCH (02:55)
[2016-09-28] MEDS: HEPARIN SODIUM - SQ 10,000 UNITS/ML VIAL SQ SCH ×2 (02:55→14:18)
[2016-09-28] MEDS: SODIUM BICARBONATE 8.4% INJ 150 MEQ in DEXTROSE 5% IN WATE 1000ML INJ 1,000 ML IV SCH ×2 (05:00)
[2016-09-28] MEDS: LEVOTHYROXINE SODIUM 50 MCG TAB PO SCH (05:35)
[2016-09-28] MEDS: INSULIN ASPART SUPPLEMENTAL SCALE SQ SCH ×4 (05:37→20:33)
[2016-09-28 07:44] LABS: AUTOMATED NEUTROPHIL # 4.4 TH/MM3 (1.8-7.7); BASOPHIL % 0.3 % (0.0-2.0); EOSINOPHIL # 0.4 TH/MM3 (0-0.4); EOSINOPHIL % 5.4 % (0.0-4.0); HEMATOCRIT 29.5 % (35.0-46.0); HEMO FLAGS DIFF FINAL; LYMPHOCYTE # 1.2 TH/MM3 (1.0-4.8); MEAN CELL VOLUME 89.9 FL (80.0-100.0); MEAN CORPUSCULAR HEMOGLOBIN 30.5 PG (27.0-34.0); MONO % 7.8 % (0.0-8.0); NEUT % 67.5 % (16.0-70.0); PLATELET COUNT 190 TH/MM3 (150-450); RED BLOOD COUNT 3.28 MIL/MM3 (4.00-5.30); RED CELL DISTRIBUTION WIDTH 13.7 % (11.6-17.2); WHITE BLOOD COUNT 6.5 TH/MM3 (4.0-11.0)
[2016-09-28 08:07] LABS: ALKALINE PHOSPHATASE 66 U/L (45-117); ALT (GPT) 13 U/L (10-53); ANION GAP 13 MEQ/L (5-15); AST (GOT) 17 U/L (15-37); BICARBONATE 34.5 MEQ/L (21.0-32.0); BLOOD UREA NITROGEN 49 MG/DL (7-18); CHLORIDE 96 MEQ/L (98-107); GLOMERULAR FILTRATION RATE 7 ML/MIN (>89); SODIUM (NA) 143 MEQ/L (136-145); TOTAL BILIRUBIN ADULT 0.3 MG/DL (0.2-1.0)
--- NOTE | 2016-09-28 11:08 | HHI.PR ---
Subjective Remarks Follow-up acute renal failure. Patient has no complaints. She continues to have good urine output. Her is at the bedside. No acute events since patient was last seen. Objective Vitals Vital Signs Date Time Temp Pulse Resp B/P Pulse Ox O2 Delivery O2 Flow Rate FiO2 09/28/16 08:40 97.4 84 18 113/79 96 09/28/16 04:00 97.5 85 18 128/79 95 09/28/16 00:00 97.6 78 18 137/78 96 09/27/16 20:00 97.5 85 18 131/76 96 09/27/16 17:24 98.5 88 19 120/73 97 09/27/16 16:00 98.5 88 17 118/64 96 09/27/16 16:00 88 09/27/16 14:00 94 09/27/16 12:00 98.2 88 17 110/69 98 09/27/16 12:00 88 I/O 09/27/16 09/27/16 09/27/16 09/28/16 09/28/16 09/28/16 07:00 15:00 23:00 07:00 15:00 23:00 Intake Total 1679 ml 1463 ml 480 ml Output Total 1500 ml 1300 ml 650 ml 2000 ml Balance 179 ml 163 ml -650 ml 480 ml -2000 ml Intake Oral 720 ml 500 ml 480 ml IV Total 959 ml 963 ml Output Urine Total 1500 ml 1300 ml 650 ml 2000 ml # Voids 3 # Bowel Movements 0 0 Result Diagram: 09/28/1620 09/28/1620 Objective Remarks GENERAL:in nad CARDIOVASCULAR: Regular rate and rhythm without murmurs, gallops, or rubs. RESPIRATORY: Breath sounds equal bilaterally. No accessory muscle use. GASTROINTESTINAL: Abdomen soft, non-tender, nondistended. MUSCULOSKELETAL: No cyanosis, or edema. BACK: Nontender without obvious deformity. No CVA tenderness. Medications and IVs Current Medications Sodium Chloride 2 ml 2 ml UNSCH PRN IVF FLUSH AFTER USING IV ACCESS; Start at 20:00; Stop 09/26/16 at 03:09; Status DC Sodium Chloride (NS 1000 ml Inj) 1,000 ml @ 2,000 mls/hr Q30M ONCE IV Last administered on 09/25/16t 20:48; Start 09/25/16 at 19:55; Stop 09/25/16 at 20:24 ; Status DC Ondansetron HCl (Zofran Inj) 4 mg ONCE ONCE IV PUSH Last administered on 20:48; Start 09/25/16 at 20:45; Stop 09/25/16 at 20:46; Status DC Calcium Gluconate (Calcium Gluconate Inj) 1 gm ONCE ONCE IV PUSH Last administered on 09/25/16 22:05; Start 09/25/16 at 21:30; Stop 09/25/16 at 21:31 ; Status DC Dextrose (D50w (Vial) Inj) 50 ml ONCE ONCE IV PUSH Last administered on 22:07; Start 09/25/16 at 21:30; Stop 09/25/16 at 21:31; Status DC Insulin Human Regular (NovoLIN R INJ) 10 units ONCE ONCE IV PUSH Last administered on 09/25/16 22:06; Start 09/25/16 at 21:30; Stop 09/25/16 at 21:31 ; Status DC Sodium Bicarbonate (Sodium Bicarbonate 8.4% Inj) 50 meq ONCE ONCE IV PUSH Last administered on 09/25/16 22:05; Start 09/25/16 at 21:30; Stop 09/25/16 at 21:31; Status DC Sodium Polystyrene Sulfonate (Kayexalate Liq) 15 gm ONCE ONCE PO Last administered on 09/25/16 22:05; Start 09/25/16 at 21:30; Stop 09/25/16 at 21:31 ; Status DC Sodium Polystyrene Sulfonate 15 gm 15 gm ONCE PO Last administered on 23:38; Start 09/25/16 at 23:30; Stop 09/26/16 at 07:09; Status DC Sodium Bicarbonate 100 meq/Sodium Chloride 1,100 ml @ 125 mls/hr Q8H48M IV Last administered on 09/25/16 22:04; Start 09/25/16 at 21:30; Stop 09/26/16 at 07:01; Status DC Sodium Chloride (NS 1000 ml Inj) 1,000 ml @ 999 mls/hr BOLUS ONCE IV Last administered on 09/25/16 22:05; Start 09/25/16 at 21:45; Stop 09/25/16 at 22:45 ; Status DC Sodium Chloride (NS Flush) 2 ml UNSCH PRN .XX FLUSH AFTER USING IV ACCESS; Start 09/26/16 at 03:00 Sodium Chloride (NS Flush) 2 ml BID .XX Last administered on 09/27/16 21:00; Start 09/26/16 at 09:00 Acetaminophen (Tylenol) 650 mg Q6H PRN PO PAIN 1-5 AND/OR FEVER >101F; Start at 03:00 Morphine Sulfate (Morphine Inj) 2 mg Q2H PRN IV PAIN SCALE 6 TO 10; Start 09/26 at 03:00 Ondansetron HCl (Zofran Inj) 4 mg Q6H PRN IV NAUSEA OR VOMITING; Start at 03:00 Metoclopramide HCl (Reglan Inj) 5 mg Q6H PRN IV NAUSEA OR VOMITING; Start 09/26 at 03:00 Temazepam (Restoril) 15 mg HS PRN PO INSOMNIA; Start 09/26/16 at 03:00 Albuterol/ Ipratropium (Duoneb Neb) 1 ampule Q2HR NEB PRN INH WHEEZING; Start 09/26/16 at 03:00 Heparin Sodium (Porcine) (Heparin Inj) 5,000 units Q12H SQ Last administered on 09/28/16 02:55; Start 09/26/16 at 03:00 Miscellaneous Information 1 Q361D XX Last administered on 09/26/16 03:00; Start 09/26/16 at 03:00 Chlorhexidine Gluconate (Chlorhexidine 2% Cloth) 3 pack Taper DAILY@04 TOP Last administered on 09/27/16 03:55; Start 09/26/16 at 04:00; Stop 09/22/17 at 03:59 Chlorhexidine Gluconate (Chlorhexidine 2% Cloth) 3 pack UNSCH PRN TOP HYGIENIC CARE; Start 09/26/16 at 03:00 Atorvastatin Calcium (Lipitor) 10 mg HS PO Last administered on 09/27/16 21:43 ; Start 09/26/16 at 21:00 Levothyroxine Sodium (Synthroid) 50 mcg DAILY@0600 PO Last administered on 09/28 05:35; Start 09/26/16 at 06:00 Dextrose (D50w (Vial) Inj) 25 ml UNSCH PRN IV PUSH HYPOGLYCEMIA-SEE COMMENTS Last administered on 09/26/16 06:37; Start 09/26/16 at 05:45 Glucagon (Glucagon Inj) 1 mg UNSCH PRN OTHER HYPOGLYCEMIA-SEE COMMENTS; Start 09/26/16 at 05:45 Insulin Aspart 1 1 ACHS SLIDING SCALE SQ Last administered on 09/28/16 05:37 ; Start 09/26/16 at 07:00 Sodium Bicarbonate/ Dextrose (Sodium Bicarbonate 8.4% Inj/D5W 1000 ml Inj) 1, 150 ml @ 150 mls/hr Q7H40M IV Last administered on 09/28/16 05:00; Start at 07:00; Stop 09/28/16 at 11:04; Status DC Sodium Polystyrene Sulfonate (Kayexalate Liq) 30 gm Q2HR PO ; Start 09/26/16 at 08:00; Stop 09/26/16 at 08:00; Status DC Sodium Polystyrene Sulfonate (Kayexalate Liq) 30 gm Q2H PO Last administered on 09/26/16 13:00; Start 09/26/16 at 09:00; Stop 09/26/16 at 14:00; Status DC Sodium Polystyrene Sulfonate (Kayexalate Liq) 30 gm STAT ONCE PO Last administered on 09/26/16 09:39; Start 09/26/16 at 07:30; Stop 09/26/16 at 07:31 ; Status DC Dextrose (D50w (Syr) Inj) 50 ml STK-MED ONCE .ROUTE Last administered on 09:39; Start 09/26/16 at 09:30; Stop 09/26/16 at 09:31; Status DC Sodium Polystyrene Sulfonate (Kayexalate Liq) 30 gm Q2HR PO/NG Last administered on 09/27/16 18:29; Start 09/27/16 at 12:00; Stop 09/27/16 at 20:00 ; Status DC Potassium Chloride (KCl) 20 meq ONCE ONCE PO ; Start 09/28/16 at 11:15; Stop at 11:16; Status UNV A/P Assessment and Plan Acute kidney injury - Most likely secondary to Dehydration. Seems to be improving. -Being managed by timber sprinkler. -Status post bicarbonate drip and IV fluids. - Continue with Strict urine output - Monitor electrolytes and creatinine - Hold all nephrotoxic medications Hyperkalemia - Treated with calcium insulin and sodium bicarbonate in the ED - Management per timber sprinkler - No EKG changes - Hold lisinopril - Given Kayexalate on 09/27, will repeat 4 doses on 09/28 for hyperkalemia. -Now patient has hypokalemia. -Will give a low dose of potassium. Hypertension - Off lisinopril due to hyperkalemia and acute kidney injury - Hydralazine when necessary Diabetic neuropathy - Hold gabapentin while in the ICU Diabetes mellitus - Off metformin - Monitor for lactic acidosis - Medium intensity sliding scale DVT GI prophylaxis - Teds SCDs - Heparin and Pepcid Discharge Planning Patient requires continue monitoring due to severe acute renal failure and to clear by timber sprinkler. Arianne Arrieta MD Sep 28, 2016 11:07
--- NOTE | 2016-09-28 11:10 | HHI.NPPN ---
Subjective History of Present Illness 56-year-old female with past medical history of diabetes mellitus diagnosed three years ago, history of hypertension, history of diabetic neuropathy, hypothyroidism who came to the hospital with generalized weakness and dizziness. I was called to see the patient because of elevated BUN and creatinine and hyperkalemia. The patient has no baseline labs from before. She came with creatinine of 8.7 with a BUN of 71 and potassium of 7.3. Additional Remarks Patient is alert, no SOB, no nausea, eating well, no complain. Review of Systems General Constitutional: Fatigue Cardiovascular Cardiac: DORSEY Objective Data Data 09/27/16 09/28/16 19:00 07:00 Intake Total 1463 ml 480 ml Output Total 1950 ml Balance -487 ml 480 ml Intake Oral 500 ml 480 ml IV Total 963 ml Output Urine Total 1950 ml # Voids 3 # Bowel Movements 0 Vital Signs Date Time Temp Pulse Resp B/P Pulse Ox O2 Delivery O2 Flow Rate FiO2 09/28/16 08:40 97.4 84 18 113/79 96 09/28/16 04:00 97.5 85 18 128/79 95 09/28/16 00:00 97.6 78 18 137/78 96 09/27/16 20:00 97.5 85 18 131/76 96 09/27/16 17:24 98.5 88 19 120/73 97 09/27/16 16:00 98.5 88 17 118/64 96 09/27/16 16:00 88 09/27/16 14:00 94 09/27/16 12:00 98.2 88 17 110/69 98 09/27/16 12:00 88 -: 09/28/16 0720 09/28/16 0720 Physical Exam General Appearance: Well Nourished, No Acute Distress, Comfortable Eyes Eye Exam: Pupils Equal Throat Throat Exam: Oral Mucosa [place] & Moist Neck Neck Exam: Neck Supple Pulmonary Resp Exam: Breath Sounds Equal, No Distress, Rhonchi, Decreased Bases Cardiology CV Exam: Regular, Normal Sinus Rhythm Gastrointestinal/Abdomen GI Exam: Soft, Non-Tender, Bowel Sounds Present Extremeties Extremities Exam: Trace Edema Neurologic Neuro Exam: Alert, Awake, Oriented Psychiatric Psych Exam: Appropriate Responses Assessment/Plan Assessment Summary: Hypertension, CKD Stage IV Electrolyte Assessment: Hyperkalemia, Metabolic Acidosis Problem List: (1) Hyperkalemia (2) Hypoglycemia (3) Acute renal failure (4) Metabolic acidosis (5) Stage 4 chronic kidney disease Plan Patient has slight improvement in the Creatinine. K is low, will give one dose PO. Possibly also has an element of MATHEW. Will try to get her previous BMP from PCP on Thursday. Kidneys look normal, complements normal, MP and ANCA are PND. Possibly has underlying CKD and develop MATHEW. D/W the patient for possible kidney Biopsy for prognosis and diagnosis both. No urgent need for Dialysis. D/C the IVF and follow BMP. Problem Qualifiers (1) Acute renal failure: Qualified Code: N17.9 - Acute renal failure, unspecified acute renal failure type Acosta Salinas MD Sep 28, 2016 11:09
[2016-09-28] MEDS ORDERED: POTASSIUM CHLORIDE 20 MEQ CONTROLLED RELEASE TAB PO ONE (11:15)
[2016-09-28] MEDS ORDERED: POTASSIUM CHLORIDE 10 MEQ CAP PO ONE (11:15)
[2016-09-28] MEDS: ATORVASTATIN 10 MG TAB PO SCH (20:30)
[2016-09-28] MEDS: SODIUM CHLORIDE 0.9% FLUSH 10 ML FLUSH SCH (20:31)
[2016-09-29] VITALS (7 sets, daily range): BP systolic 123–154; BP diastolic 77–93; PULSE 71–83; RESP 18–20; TEMP 97.8–98.7; O2SAT 92–100
[2016-09-29] MEDS: HEPARIN SODIUM - SQ 10,000 UNITS/ML VIAL SQ SCH ×2 (03:22→15:40)
[2016-09-29] MEDS: CHLORHEXIDINE GLUCONATE 2 % 1 PACK (2 CLOTHS) TOP SCH (03:22)
[2016-09-29] MEDS: LEVOTHYROXINE SODIUM 50 MCG TAB PO SCH (05:46)
[2016-09-29] MEDS: INSULIN ASPART SUPPLEMENTAL SCALE SQ SCH ×4 (07:00→21:40)
--- NOTE | 2016-09-29 10:00 | HHI.PR ---
Subjective Remarks f/u for ARF patient has no complaints. good UOP. anxious to go home. Labs are not drawn yet. Spoke to supervising Biodiesel Engine Specialist in regards to this. Objective Vitals Vital Signs Date Time Temp Pulse Resp B/P Pulse Ox O2 Delivery O2 Flow Rate FiO2 09/29/16 08:33 98.1 76 20 123/83 95 09/29/16 04:00 97.8 74 20 134/78 92 09/28/16 20:00 99.1 82 26 160/92 97 09/28/16 16:33 98.7 82 18 143/72 95 09/28/16 12:12 98.4 89 19 121/77 96 I/O 09/28/16 09/28/16 09/28/16 09/29/16 09/29/16 09/29/16 07:00 15:00 23:00 07:00 15:00 23:00 Intake Total 480 ml 360 ml Output Total 2000 ml 1000 ml 950 ml Balance 480 ml -1640 ml -1000 ml -950 ml Intake Oral 480 ml 360 ml Output Urine Total 2000 ml 1000 ml 950 ml # Voids 3 Result Diagram: 09/28/1671909/28/16 0720 Objective Remarks GENERAL:in nad CARDIOVASCULAR: Regular rate and rhythm without murmurs, gallops, or rubs. RESPIRATORY: Breath sounds equal bilaterally. No accessory muscle use. GASTROINTESTINAL: Abdomen soft, non-tender, nondistended. MUSCULOSKELETAL: No cyanosis, or edema. BACK: Nontender without obvious deformity. No CVA tenderness. Medications and IVs Current Medications Sodium Chloride 2 ml 2 ml UNSCH PRN IVF FLUSH AFTER USING IV ACCESS; Start at 20:00; Stop 09/26/16 at 03:09; Status DC Sodium Chloride (NS 1000 ml Inj) 1,000 ml @ 2,000 mls/hr Q30M ONCE IV Last administered on 09/25/16 20:48; Start 09/25/16 at 19:55; Stop 09/25/16 at 20:24 ; Status DC Ondansetron HCl (Zofran Inj) 4 mg ONCE ONCE IV PUSH Last administered on 20:48; Start 09/25/16 at 20:45; Stop 09/25/16 at 20:46; Status DC Calcium Gluconate (Calcium Gluconate Inj) 1 gm ONCE ONCE IV PUSH Last administered on 09/25/16 22:05; Start 09/25/16 at 21:30; Stop 09/25/16 at 21:31 ; Status DC Dextrose (D50w (Vial) Inj) 50 ml ONCE ONCE IV PUSH Last administered on 22:07; Start 09/25/16 at 21:30; Stop 09/25/16 at 21:31; Status DC Insulin Human Regular (NovoLIN R INJ) 10 units ONCE ONCE IV PUSH Last administered on 09/25/16 22:06; Start 09/25/16 at 21:30; Stop 09/25/16 at 21:31 ; Status DC Sodium Bicarbonate (Sodium Bicarbonate 8.4% Inj) 50 meq ONCE ONCE IV PUSH Last administered on 09/25/16 22:05; Start 09/25/16 at 21:30; Stop 09/25/16 at 21:31; Status DC Sodium Polystyrene Sulfonate (Kayexalate Liq) 15 gm ONCE ONCE PO Last administered on 09/25/16 22:05; Start 09/25/16 at 21:30; Stop 09/25/16 at 21:31 ; Status DC Sodium Polystyrene Sulfonate 15 gm 15 gm ONCE PO Last administered on 23:38; Start 09/25/16 at 23:30; Stop 09/26/16 at 07:09; Status DC Sodium Bicarbonate 100 meq/Sodium Chloride 1,100 ml @ 125 mls/hr Q8H48M IV Last administered on 09/25/16 22:04; Start 09/25/16 at 21:30; Stop 09/26/16 at 07:01; Status DC Sodium Chloride (NS 1000 ml Inj) 1,000 ml @ 999 mls/hr BOLUS ONCE IV Last administered on 09/25/16 22:05; Start 09/25/16 at 21:45; Stop 09/25/16 at 22:45 ; Status DC Sodium Chloride (NS Flush) 2 ml UNSCH PRN .XX FLUSH AFTER USING IV ACCESS; Start 09/26/16 at 03:00 Sodium Chloride (NS Flush) 2 ml BID .XX Last administered on 09/28/16 20:31; Start 09/26/16 at 09:00 Acetaminophen (Tylenol) 650 mg Q6H PRN PO PAIN 1-5 AND/OR FEVER >101F; Start at 03:00 Morphine Sulfate (Morphine Inj) 2 mg Q2H PRN IV PAIN SCALE 6 TO 10; Start 09/26 at 03:00 Ondansetron HCl (Zofran Inj) 4 mg Q6H PRN IV NAUSEA OR VOMITING; Start at 03:00 Metoclopramide HCl (Reglan Inj) 5 mg Q6H PRN IV NAUSEA OR VOMITING; Start 09/26 at 03:00 Temazepam (Restoril) 15 mg HS PRN PO INSOMNIA; Start 09/26/16 at 03:00 Albuterol/ Ipratropium (Duoneb Neb) 1 ampule Q2HR NEB PRN INH WHEEZING; Start 09/26/16 at 03:00 Heparin Sodium (Porcine) (Heparin Inj) 5,000 units Q12H SQ Last administered on 09/29/16 03:22; Start 09/26/16 at 03:00 Miscellaneous Information 1 Q361D XX Last administered on 09/26/16 03:00; Start 09/26/16 at 03:00 Chlorhexidine Gluconate (Chlorhexidine 2% Cloth) 3 pack Taper DAILY@04 TOP Last administered on 09/27/16 03:55; Start 09/26/16 at 04:00; Stop 09/22/17 at 03:59 Chlorhexidine Gluconate (Chlorhexidine 2% Cloth) 3 pack UNSCH PRN TOP HYGIENIC CARE; Start 09/26/16 at 03:00 Atorvastatin Calcium (Lipitor) 10 mg HS PO Last administered on 09/28/16 20:30 ; Start 09/26/16 at 21:00 Levothyroxine Sodium (Synthroid) 50 mcg DAILY@0600 PO Last administered on 09/29 05:46; Start 09/26/16 at 06:00 Dextrose (D50w (Vial) Inj) 25 ml UNSCH PRN IV PUSH HYPOGLYCEMIA-SEE COMMENTS Last administered on 09/26/16 06:37; Start 09/26/16 at 05:45 Glucagon (Glucagon Inj) 1 mg UNSCH PRN OTHER HYPOGLYCEMIA-SEE COMMENTS; Start 09/26/16 at 05:45 Insulin Aspart 1 1 ACHS SLIDING SCALE SQ Last administered on 09/29/16 07:00 ; Start 09/26/16 at 07:00 Sodium Bicarbonate/ Dextrose (Sodium Bicarbonate 8.4% Inj/D5W 1000 ml Inj) 1, 150 ml @ 150 mls/hr Q7H40M IV Last administered on 09/28/16 05:00; Start at 07:00; Stop 09/28/16 at 11:04; Status DC Sodium Polystyrene Sulfonate (Kayexalate Liq) 30 gm Q2HR PO ; Start 09/26/16 at 08:00; Stop 09/26/16 at 08:00; Status DC Sodium Polystyrene Sulfonate (Kayexalate Liq) 30 gm Q2H PO Last administered on 09/26/16 13:00; Start 09/26/16 at 09:00; Stop 09/26/16 at 14:00; Status DC Sodium Polystyrene Sulfonate (Kayexalate Liq) 30 gm STAT ONCE PO Last administered on 09/26/16 09:39; Start 09/26/16 at 07:30; Stop 09/26/16 at 07:31 ; Status DC Dextrose (D50w (Syr) Inj) 50 ml STK-MED ONCE .ROUTE Last administered on 09:39; Start 09/26/16 at 09:30; Stop 09/26/16 at 09:31; Status DC Sodium Polystyrene Sulfonate (Kayexalate Liq) 30 gm Q2HR PO/NG Last administered on 09/27/16 18:29; Start 09/27/16 at 12:00; Stop 09/27/16 at 20:00 ; Status DC Potassium Chloride (KCl) 20 meq ONCE ONCE PO Last administered on 09/28/16 11 :38; Start 09/28/16 at 11:15; Stop 09/28/16 at 11:16; Status DC Potassium Chloride (KCl) 10 meq ONCE ONCE PO Last administered on 09/28/16 11 :59; Start 09/28/16 at 11:15; Stop 09/28/16 at 11:16; Status DC A/P Assessment and Plan Acute kidney injury - Most likely secondary to Dehydration. Seems to be improving, but no labs drawn yet. still pending. -Being managed by carbon capture power plant engineer. -Status post bicarbonate drip and IV fluids. - Continue with Strict urine output - Monitor electrolytes and creatinine - Hold all nephrotoxic medications -pending PCP labs. per [employer] Conductor may need biopsy. Hyperkalemia - Treated with calcium insulin and sodium bicarbonate in the ED - Management per carbon capture power plant engineer - No EKG changes - Hold lisinopril - Given Kayexalate on 09/27, will repeat 4 doses on 09/28 for hyperkalemia. -Now patient has hypokalemia. -s/p given K yesterday and still waiting for labs. Hypertension - Off lisinopril due to hyperkalemia and acute kidney injury - Hydralazine when necessary Diabetic neuropathy - Hold gabapentin while in the ICU Diabetes mellitus - Off metformin - Monitor for lactic acidosis - Medium intensity sliding scale DVT GI prophylaxis - Teds SCDs - Heparin and Pepcid Discharge Planning Patient requires continue monitoring due to severe acute renal failure and to clear by carbon capture power plant engineer. Arianne Arrieta MD Sep 29, 2016 10:00
[2016-09-29] MEDS: SODIUM CHLORIDE 0.9% FLUSH 10 ML FLUSH SCH ×2 (11:04→21:44)
[2016-09-29 11:09] LABS: BICARBONATE 29.5 MEQ/L (21.0-32.0); MAGNESIUM 1.3 MG/DL (1.5-2.5); POTASSIUM 3.2 MEQ/L (3.5-5.1)
--- NOTE | 2016-09-29 17:37 | HHI.NPPN ---
Subjective History of Present Illness 56-year-old female with past medical history of diabetes mellitus diagnosed three years ago, history of hypertension, history of diabetic neuropathy, hypothyroidism who came to the hospital with generalized weakness and dizziness. I was called to see the patient because of elevated BUN and creatinine and hyperkalemia. The patient has no baseline labs from before. She came with creatinine of 8.7 with a BUN of 71 and potassium of 7.3. Additional Remarks Patient is alert, no SOB, no nausea, eating well, clinically same. Review of Systems General Constitutional: Fatigue Cardiovascular Cardiac: DORSEY Objective Data Data 09/28/16 09/29/16 19:00 07:00 Intake Total 360 ml Output Total 3000 ml 950 ml Balance -2640 ml -950 ml Intake Oral 360 ml Output Urine Total 3000 ml 950 ml Vital Signs Date Time Temp Pulse Resp B/P Pulse Ox O2 Delivery O2 Flow Rate FiO2 09/29/16 17:06 98.7 71 20 148/77 95 09/29/16 12:38 74 09/29/16 12:00 98.1 83 20 141/93 98 09/29/16 08:33 98.1 76 20 123/83 95 09/29/16 04:00 97.8 74 20 134/78 92 09/28/16 20:00 99.1 82 26 160/92 97 -: 09/28/16 0720 09/29/16 1009 Physical Exam General Appearance: Well Nourished, No Acute Distress, Comfortable Eyes Eye Exam: Pupils Equal Throat Throat Exam: Oral Mucosa [place] & Moist Neck Neck Exam: Neck Supple Pulmonary Resp Exam: Breath Sounds Equal, No Distress, Rhonchi, Decreased Bases Cardiology CV Exam: Regular, Normal Sinus Rhythm Gastrointestinal/Abdomen GI Exam: Soft, Non-Tender, Bowel Sounds Present Extremeties Extremities Exam: Trace Edema Neurologic Neuro Exam: Alert, Awake, Oriented Psychiatric Psych Exam: Appropriate Responses Assessment/Plan Assessment Summary: Hypertension, CKD Stage IV Electrolyte Assessment: Hyperkalemia, Metabolic Acidosis Problem List: (1) Hyperkalemia (2) Hypoglycemia (3) Acute renal failure (4) Metabolic acidosis (5) Stage 4 chronic kidney disease Plan Patient has slight improvement in the Creatinine. K is low, will give one dose PO. Possibly also has an element of MATHEW. Will try to get her previous BMP from PCP on Thursday. Kidneys look normal, complements normal, MP and ANCA are PND. Possibly has underlying CKD and develop MATHEW. Now the Creatinine continue to improve. GFR is 10 ml/min. Awaiting previous labs from PCP. Follow the urine out put and BMP. Problem Qualifiers (1) Acute renal failure: Qualified Code: N17.9 - Acute renal failure, unspecified acute renal failure type Acosta Salinas MD Sep 29, 2016 17:37
[2016-09-29] MEDS: ATORVASTATIN 10 MG TAB PO SCH (21:39)
[2016-09-30 01:05] VITALS: BP 119/72; PULSE 76; RESP 20; TEMP 98.4; O2SAT 99
[2016-09-30] MEDS: HEPARIN SODIUM - SQ 10,000 UNITS/ML VIAL SQ SCH (03:45)
[2016-09-30] MEDS: CHLORHEXIDINE GLUCONATE 2 % 1 PACK (2 CLOTHS) TOP SCH (04:00)
[2016-09-30 05:13] VITALS: BP 132/77; PULSE 72; RESP 18; TEMP 97.6; O2SAT 97
[2016-09-30] MEDS: LEVOTHYROXINE SODIUM 50 MCG TAB PO SCH (06:35)
[2016-09-30] MEDS: INSULIN ASPART SUPPLEMENTAL SCALE SQ SCH ×2 (06:47→11:51)
[2016-09-30 08:05] LABS: BICARBONATE 33.2 MEQ/L (21.0-32.0); POTASSIUM 3.4 MEQ/L (3.5-5.1)
[2016-09-30 08:50] VITALS: BP 136/76; PULSE 74; RESP 20; TEMP 97.8; O2SAT 96
[2016-09-30] MEDS: SODIUM CHLORIDE 0.9% FLUSH 10 ML FLUSH SCH (09:09)
[2016-09-30 09:48] VITALS: PULSE 69
--- NOTE | 2016-09-30 10:46 | HHI.DS ---
Discharge Summary Admission Date Sep 25, 2016 at 22:29 Discharge Date: Sep 30, 2016 Admitting Diagnosis acute renal failure, hyperkalemia, hypoglycemia (1) Acute renal failure ICD Code: N17.9 Diagnosis: Principal (2) Hyperkalemia ICD Code: E87.5 Diagnosis: Principal (3) Hypoglycemia ICD Code: E16.2 Diagnosis: Principal (4) Metabolic acidosis ICD Code: E87.2 Diagnosis: Principal (5) Stage 4 chronic kidney disease ICD Code: N18.4 Diagnosis: Secondary Procedures See hospital course for further information. Brief History - From Admission 56-year-old female with history of hypertension, diabetes, sent in by urgent care facility for hypoglycemia. Patient initially went to the urgent care facility for evaluation of generalized weakness and malaise for the last 2-3 days. Patient is also felt nauseous and has had poor appetite and little to eat or drink. No vomiting. No diarrhea. No abdominal pain. No chest pain or dyspnea. No fevers or chills. Patient's blood glucose was 46 at the urgent care facility. She was given oral glucose and transferred to the emergency department. However she was found to be in acute renal failure with creatinine 9 and potassium 7. She was initially seen at the [facility] however per nephrology exchange underwriting consultant request she was transferred to [facility] and admitted to ICU. CBC/BMP: 09/28/16 0720 09/30/16 0704 Significant Findings Laboratory Tests Test 09/27/16 09/28/16 09/29/16 09/30/16 18:07 07:20 10:09 07:04 Potassium Level 3.1 MEQ/L 3.0 MEQ/L 3.2 MEQ/L 3.4 MEQ/L (3.5-5.1) (3.5-5.1) (3.5-5.1) (3.5-5.1) Chloride Level 95 MEQ/L 96 MEQ/L (98-107) (98-107) Carbon Dioxide Level 33.3 MEQ/L 34.5 MEQ/L 33.2 MEQ/L (21.0-32.0) (21.0-32.0) (21.0-32.0) Blood Urea Nitrogen 56 MG/DL (7-18) 49 MG/DL (7-18) 43 MG/DL (7-18) 37 MG/DL (7- 18) Creatinine 7.51 MG/DL 6.22 MG/DL 4.44 MG/DL 3.14 MG/DL (0.50-1.00) (0.50-1.00) (0.50-1.00) (0.50-1.00) Estimat Glomerular Filtration 6 ML/MIN (>89) 7 ML/MIN (>89) 10 ML/MIN (>89) 15 ML/MIN (>89) Rate Random Glucose 237 MG/DL 223 MG/DL 308 MG/DL 198 MG/DL (74-106) (74-106) (74-106) (74-106) Calcium Level 8.1 MG/DL 7.7 MG/DL 8.2 MG/DL 8.1 MG/DL (8.5-10.1) (8.5-10.1) (8.5-10.1) (8.5-10.1) Red Blood Count 3.28 MIL/MM3 (4.00-5.30) Hemoglobin 10.0 GM/DL (11.6-15.3) Hematocrit 29.5 % (35.0-46.0) Eosinophils (%) (Auto) 5.4 % (0.0-4.0) Total Protein 5.9 GM/DL (6.4-8.2) Albumin 3.0 GM/DL (3.4-5.0) Magnesium Level 1.3 MG/DL (1.5-2.5) Imaging Last Impressions Renal Ultrasound 09/26/16 Signed Impressions: Service Date/Time: Monday, September 26, 2016 09:23 - CONCLUSION: Normal examination. Martínez Villarreal MD Chest X-Ray 09/25/16 Signed Impressions: Service Date/Time: September 21:01 - CONCLUSION: No acute cardiopulmonary disease. Stefano Lazaro MD PE at Discharge GENERAL:in nad CARDIOVASCULAR: Regular rate and rhythm without murmurs, gallops, or rubs. RESPIRATORY: Breath sounds equal bilaterally. No accessory muscle use. GASTROINTESTINAL: Abdomen soft, non-tender, nondistended. MUSCULOSKELETAL: No cyanosis, or edema. BACK: Nontender without obvious deformity. No CVA tenderness. Pt update on day of discharge Follow-up for acute renal failure. Patient continues to make good urine output. She is very anxious to go home today. She stated that Dr. Salinas saw her this morning so that she can go home. Patient's nurse also told me that patient was cleared by Dr. Salinas to be discharged today. No acute events overnight. Hospital Course Acute kidney injury - Most likely secondary to Dehydration. -Patient was initially admitted to the ICU. Purchasing/Receiving was consulted to help with management. She was put on IV fluids and a bicarbonate drip. - Strict urine output and input obtained and she made good urine output during the hospital course. - Creatinine improved to the hospital course. Hyperkalemia - Patient was treated with with calcium insulin and sodium bicarbonate in the ED -He had no EKG changes. Lisinopril was also held. -He was given Kayexalate multiple times in which later he developed hypokalemia in which he was given low dose of potassium which that resolved. Hypertension - Lisinopril was held due to acute renal failure. She was normotensive off the blood pressure medicine. Diabetes mellitus - Off metformin - Monitor for lactic acidosis - Medium intensity sliding scale Pt Condition on Discharge: Good Discharge Disposition: Discharge Home Discharge Time: <= 30 minutes Discharge Instructions DIET: Follow Instructions for: Heart Healthy Diet, Diabetic Diet Activities you can perform: Regular-No Restrictions Follow up Referrals: Nephrology - [address] Salinas PCP Follow-up - 1 Week Continued Medications: Atorvastatin (Atorvastatin) 10 Mg Tab 10 MG PO HS Cholesterol Management #30 Ref 0 TAB Levothyroxine (Levothyroxine) 50 Mcg Tab 50 MCG PO DAILY Thyroid #30 Ref 0 TAB Tramadol (Tramadol) 50 Mg Tab 50 MG PO Q4H PRN PAIN Ref 0 TAB Discontinued Medications: Gabapentin (Gabapentin) 800 Mg Tab 800 MG PO TID #90 Ref 0 TAB Lisinopril (Lisinopril) 10 Mg Tab 10 MG PO DAILY #30 Ref 0 TAB Metformin (Metformin) 850 Mg Tab 850 MG PO BIDPC With meals Blood Sugar Management Ref 0 TAB Pantoprazole (Pantoprazole) 20 Mg Tab 20 MG PO DAILY Reflux #30 Ref 0 TAB Arianne Arrieta MD Sep 30, 2016 10:46
--- NOTE | 2016-09-30 10:46 | HHI.DCPOC ---
Discharge Care Plan Diagnosis: (1) Acute renal failure (2) Stage 4 chronic kidney disease Goals to Promote Your Health * To prevent worsening of your condition and complications * To maintain your health at the optimal level Directions to Meet Your Goals Take your medications as prescribed Follow your dietary instruction Follow activity as directed Keep your appointments as scheduled Take your immunizations and boosters as scheduled If your symptoms worsen call your PCP, if no PCP go to Urgent Care Center or Emergency Room Smoking is Dangerous to Your Health. Avoid second hand smoke Call the 24-hour hour crisis hotline for domestic abuse at Arianne Arrieta MD Sep 30, 2016 10:46
--- NOTE | 2016-09-30 10:56 | HHI.NPPN ---
Subjective History of Present Illness 56-year-old female with past medical history of diabetes mellitus diagnosed three years ago, history of hypertension, history of diabetic neuropathy, hypothyroidism who came to the hospital with generalized weakness and dizziness. I was called to see the patient because of elevated BUN and creatinine and hyperkalemia. The patient has no baseline labs from before. She came with creatinine of 8.7 with a BUN of 71 and potassium of 7.3. Additional Remarks Patient is alert, no SOB, no nausea, eating well, and feeling better. Review of Systems General Constitutional: Fatigue Cardiovascular Cardiac: DORSEY Objective Data Data 09/29/16 09/30/16 19:00 07:00 Intake Total 720 ml Output Total 1650 ml 325 ml Balance -930 ml -325 ml Intake Oral 720 ml Output Urine Total 1650 ml 325 ml # Voids 3 # Bowel Movements 0 Vital Signs Date Time Temp Pulse Resp B/P Pulse Ox O2 Delivery O2 Flow Rate FiO2 09/30/16 09:48 69 09/30/16 08:50 97.8 74 20 136/76 96 09/30/16 05:13 97.6 72 18 132/77 97 09/30/16 01:05 98.4 76 20 119/72 99 09/29/16 23:00 78 09/29/16 20:22 98.4 79 18 154/81 100 09/29/16 17:06 98.7 71 20 148/77 95 09/29/16 12:38 74 09/29/16 12:00 98.1 83 20 141/93 98 -: 09/28/16 0720 09/30/16 0704 Physical Exam General Appearance: Well Nourished, No Acute Distress, Comfortable Eyes Eye Exam: Pupils Equal Throat Throat Exam: Oral Mucosa [place] & Moist Neck Neck Exam: Neck Supple Pulmonary Resp Exam: Breath Sounds Equal, No Distress, Rhonchi, Decreased Bases Cardiology CV Exam: Regular, Normal Sinus Rhythm Gastrointestinal/Abdomen GI Exam: Soft, Non-Tender, Bowel Sounds Present Extremeties Extremities Exam: Trace Edema Neurologic Neuro Exam: Alert, Awake, Oriented Psychiatric Psych Exam: Appropriate Responses Assessment/Plan Assessment Summary: Hypertension, CKD Stage IV Electrolyte Assessment: Hyperkalemia, Metabolic Acidosis Problem List: (1) Hyperkalemia (2) Hypoglycemia (3) Acute renal failure (4) Metabolic acidosis (5) Stage 4 chronic kidney disease Plan Patient has now significant improvement in the Creatinine. K is better , now 3.4. Has an element of MATHEW. Kidneys look normal, complements normal, MP negative, and ANCA are PND. Possibly has underlying CKD and develop MATHEW. Told to drink more fluid and to take more K. Can be discharged with follow up in 7-10 days with me. Problem Qualifiers (1) Acute renal failure: Qualified Code: N17.9 - Acute renal failure, unspecified acute renal failure type Acosta Salinas MD Sep 30, 2016 10:56
[2016-10-01 15:54] LABS: MYELOPEROXIDASE LESS THAN 1.0 AI (<1.0); PROTEINASE-3 LESS THAN 1.0 AI (<1.0)
== END 2016-09-30 13:01 | disposition home or self-care (01) | DRG 683 ==
LOC: PHED 19:35 → PHEDA 22:29 → N03B 09-26 00:29 → N05B 09-27 16:30
PROVIDERS: ADMIT Internal Medicine Critical Care Medicine; ATTEND Family Medicine
DX: N17.9 Acute kidney failure, unspecified (principal); E87.2 Acidosis; E11.22 Type 2 diabetes mellitus with diabetic chronic kidney disease; E11.42 Type 2 diabetes mellitus with diabetic polyneuropathy; E11.649 Type 2 diabetes mellitus with hypoglycemia without coma; E87.5 Hyperkalemia; E03.9 Hypothyroidism, unspecified; I12.9 Hypertensive chronic kidney disease with stage 1 through stage 4 chronic kidney disease, or unspecified chronic kidney disease; N18.4 Chronic kidney disease, stage 4 (severe); Z79.84 Long term (current) use of oral hypoglycemic drugs
CPT/HCPCS: 36600; 71010; 76775; 80048; 80053; 81001; 82010; 82550; 82552; 82805; 82948; 83735; 84100; 84484; 85007; 85025; 85027; 86021; 86038; 86160; 87641; 87804; 93005; 96361; 96374; 96375; J0610; J1644; J1815; J2405; J7030; J7070